=== PATIENT | female | born 1975 | race Caucasian/White ===

== ENCOUNTER 2020-09-24 21:34 | Emergency (ER) | payer MEDICAID ==
[~2020-09-24] VITALS: Ht 157.5 cm; Wt 62.6 kg
[2020-09-24 21:50] VITALS: BP 135/88
--- NOTE | 2020-09-24 22:02 | NUR ---
PT ASSISTED TO BED 09 VIA W/C
[2020-09-24] MEDS ORDERED: NACL 0.9% 1,000 ML IV ONE (22:15)
[2020-09-24] MEDS ORDERED: ONDANSETRON 4 MG/2 ML VIAL IVP ONE (22:15)
--- NOTE | 2020-09-24 22:35 | NUR ---
45 Y/O F, CAME IN TO ER W/ C/O ABDOMINAL PAIN. PT REPORTS EATING QUINOA AND STARTED TO FEEL SICK. HAS BEEN VOMITING FOR 1 DAY. ABDOMINAL PAIN 03/13. EMESIS BAG IN HAND. ANOx4, NO SOB, NO CONTACT WITH SICK PERSONS. NO FEVER/COUGH. SIDE RAILS UP, BED LOCKED AND IN LOWEST POSITION. WILL CONTINUE TO MONITOR. NKA NO PAST MEDICAL HX
[2020-09-24 22:40] LABS: HEMATOCRIT 43.1 % (36-48); HEMOGLOBIN 14.7 g/dL (12.0-16.0); MEAN CORPUSCULAR HEMOGLOBIN 32 pg (27-31); MEAN CORPUSCULAR HGB CONC 34 g/dL (33-37); PLATELET COUNT (AUTO) 266 K/uL (140-450); RED BLOOD CELL COUNT(AUTO) 4.59 MIL/uL (4.20-5.40); RED CELL DISTRIBUTION WIDTH 12.7 % (11.6-13.7); WHITE BLOOD COUNT (AUTO) 15.1 K/uL (4.8-10.8)
[2020-09-24 23:03] LABS: ALBUMIN 4.1 g/dL (3.4-5.0); ANION GAP 15.2 (8-16); CREATININE 0.9 mg/dL (0.6-1.3); POTASSIUM 3.2 mmol/L (3.5-5.1); TOTAL BILIRUBIN 1.1 mg/dL (0.0-1.0)
[2020-09-24 23:09] LABS: LYMPHOCYTES % (MANUAL) 8 % (20-46); MONOCYTES % (MANUAL) 6 % (5-12)
--- NOTE | 2020-09-24 23:51 | NUR ---
ERMD SINGH AT BEDSIDE.
[2020-09-24] MEDS ORDERED: ONDA4TAB PO (23:54)
[2020-09-25 00:20] VITALS: BP 135/88
--- NOTE | 2020-09-25 00:20 | NUR ---
Patient discharged with v/s stable. Written and verbal after care instructions given and explained. Patient alert, oriented and verbalized understanding of instructions. Ambulatory with steady gait. All questions addressed prior to discharge. ID band removed. IV Discontinued. Patient advised to follow up with PMD. Rx of ZOFRAN given. Patient educated on indication of medication including possible reaction and side effects. Opportunity to ask questions provided and answered.
== END 2020-09-24 21:50 | disposition home or self-care (01) ==
LOC: MED 21:34
DX: R11.2 Nausea with vomiting, unspecified (principal); R10.84 Generalized abdominal pain
CPT/HCPCS: 80053; 81002; 81025; 84702; 85025; 96361; 96374; 99284; J2405; J7030